=== PATIENT | female | born 1995 | race Caucasian/White ===

== ENCOUNTER 2018-02-28 10:35 | Inpatient (IN) ==
[2018-02-28] MEDS ORDERED: *HR* LORazepam 2 MG/ML VIAL IM PRN (10:44)
[2018-02-28] MEDS ORDERED: MOM Conc 10 ML UD.LIQ PO PRN (10:44)
[2018-02-28] MEDS ORDERED: Acetaminophen 325 MG TABLET PO PRN (10:44)
[2018-02-28] MEDS ORDERED: Haloperidol Lactate 5 MG/ML VIAL IM PRN (10:44)
[2018-02-28] MEDS ORDERED: Mag Hydrox/Al Hydrox/Simeth 30 ML UDC PO PRN (10:44)
[2018-02-28] MEDS ORDERED: traZODone 50 MG TABLET PO PRN (10:44)
[2018-02-28] MEDS ORDERED: *HR* LORazepam 1 MG TABLET PO PRN (10:44)
[2018-02-28] MEDS ORDERED: hydrOXYzine pamoate 25 MG CAPSULE PO PRN (10:44)
--- NOTE | 2018-02-28 16:55 | Psychiatry History & Physical ---
Date of Encounter: 02/28/18 Time of Encounter: 16:30 History of Present Illness Patient Stated Chief Complaint: "I overdosed on my medication." Medicare Admission Attestation: For traditional Medicare patients the provided hospital inpatient services are reasonable and necessary and in the case of services not specified as inpatient-only under 42 CFR 419.22 (n), that they are appropriately provided as inpatient services in accordance 42 CFR 412.3. For Critical Access Hospital the patient may reasonably be expected to be discharged or transferred to a hospital within 96 hours after admission to the Critical Access Hospital. History of Present Illness: Ms. Holliday is a 22 year old female admitted from medicine service. Patient admitted after overdosing on Lexapro 5mg and Effexor 75mg. The patient had BP and pulse elevation for 2 days and once she was medically stable was able to come to [facility]. Patient stated she had an argument with her mother which precipitated the SI. Patient has one other psychiatric hospitalization on [facility] for depression in April of 2017. Patient has been on Effexor 75mg after first hospitalization, but found that it made her tired, but she could not sleep. She was switched to Lexapro 5mg about 2 wks prior to admission and noticed no improvement in her mood. Patient admitted to low energy, dwelling on things, amotivation, change in appetite, isolating and being depressed She rated her depression a 6 and her anxiety a 5 on a scale of 1-10, 10 being worst. Patient continues to have suicidal ideation, Denies homicidal ideation, denies A/V hallucinations. Denies psychotic symptoms. Patient tried to overdose on Tylenol when a teenager. Patient also stated that she had jessica diagnosed with dyslexia and ADD when she was a teenager, but was never treated for the ADD. Past Med Surg Social Fam HX - Past Medical History Medical history: no medical history - Past Psychiatric History Psychiatric history: Reports: anxiety, ADHD, depression, previous psychiatric hospitalization Past psychiatric history details: Patient hospitalized in April 2017 for severe depression with SI Family psychiatric history: Yes Family History of Suicide: Unknown - Past Surgical History Surgical History: no surgical history - Social History Smoking Status: Never smoker Smokeless Tobacco Status: No Alcohol use: occasionally Drug use: none - Family History Sister Hx Family Neurologic Disorders: Yes (CF) Medications & Allergies Escitalopram [Lexapro] 5 mg PO DAILY 02/27/18 [History] Allergy/AdvReac Type Severity Reaction Status Date / Time sulfamethoxazole Allergy Rash Verified 05/12/17 00:01 [From Bactrim] trimethoprim [From Bactrim] Allergy Rash Verified 05/12/17 00:01 Review of Systems Constitutional: Denies: fever, chills, weakness, weight change Eyes: Denies: eye pain, vision change Ears, Nose, Throat: Denies: ear pain, throat pain, dental pain, hearing loss, congestion Cardiovascular: Denies: chest pain, palpitations, dyspnea on exertion Respiratory: Denies: cough, dyspnea, wheezes Gastrointestinal: Denies: abdominal pain, nausea, vomiting, diarrhea, constipation Genitourinary female: Denies: urgency, dysuria, frequency, abnormal menses, dyspareunia Musculoskeletal: Denies: joint swelling, joint pain Integumentary: Denies: rash, lesions, pruritus Neurological: Denies: headache, weakness, numbness, memory loss Psychiatric: Reports: depression, anxiety, suicidal ideation, difficulty concentrating Endocrine: Denies: fatigue, heat or cold intolerance, polydipsia, polyuria Hematologic/Lymphatic: Denies: easy bruising, lymphadenopathy Allergic/Immunologic: Denies: urticaria, itchy eyes Exam - HEENT Head exam IM: Present: atraumatic Eye exam IM: Present: EOMI, normal appearance, PERRL ENT exam IM: Present: normal exam - Neurological Neurological exam: Present: CN II-XII intact - Respiratory Respiratory exam IM: Present: CTAB - GI/Abdominal GI/Abdominal exam IM: Present: normal bowel sounds, soft. Absent: tenderness - Extremities Extremities exam IM: Present: full ROM - Skin Skin exam IM: Present: dry, warm - Constitutional General appearance: age & developmentally appropriate, well-groomed, well- nourished - Musculoskeletal Gait: normal Station: relaxed Strength & Tone: normal for patient - Psychiatric Patient Orientation: Yes Person, Yes Time, Yes Place, Yes Circumstance Level of alertness: Alert Behavior: calm, cooperative Psychomotor activity: Normal Eye Contact: Maintains Eye Contact Mood Description: Depressed, Anxious Patient description of mood: Moderately depressed Affect description: congruent with mood, full range Speech Volume: Normal Speech pattern: normal rate, normal rhythm, normal tone, fluent, spontaneous Language & Vocabulary: consistent with education Thought Process: Linear, Goal Oriented Thought Content: Yes Suicidal ideation, No Homicidal ideation, No Overt delusions Perceptual Disturbances: No Auditory hallucinations, No Visual hallucinations Attention Span Ability: Capable of Focused Attention Memory Description: Grossly Intact Patient Reliability: Reliable Historian Fund of knowledge: Yes abstraction ability, Yes average, Yes aware of current events Intelligence Estimate: Average Judgment: Fair Insight: Partial Results - Impressions Labs on discharge from [facility] WNL. Assessment and Plan (1) Suicidal ideation Current visit: No Status: Acute Plan: Admit inpatient for safety and stabilization, Close observation, Suicide Precautions per unit protocol, Encourage participation in unit milieu, Group Therapy, Monitor sleep, Monitor appetite Additional Plan: Start Cymbalta or derpession Risks, benefits, side effects, alternatives discussed w/pt: Yes Patient agreeable to treatment: Yes Plans for Post Hospital Care: Home Estimated Length of Stay (Days): 6 (2) Major depress dis, severe Current visit: No Status: Acute Plan: Admit inpatient for safety and stabilization, Close observation, Suicide Precautions per unit protocol, Encourage participation in unit milieu, Group Therapy, Monitor sleep, Monitor appetite Additional Plan: Start Cymbalta 30mg for mood with titration to 60mg/d Risks, benefits, side effects, alternatives discussed w/pt: Yes Patient agreeable to treatment: Yes Plans for Post Hospital Care: Home (3) Generalized anxiety disorder Current visit: No Status: Chronic Plan: Admit inpatient for safety and stabilization, Close observation, Suicide Precautions per unit protocol, Encourage participation in unit milieu, Group Therapy, Monitor sleep, Monitor appetite Additional Plan: Start Cymbalta 30mg/d for anxiety Risks, benefits, side effects, alternatives discussed w/pt: Yes Patient agreeable to treatment: Yes Plans for Post Hospital Care: Home
--- NOTE | 2018-03-01 10:21 | Psychiatry Progress Note ---
Date of Encounter: 03/01/18 Time of Encounter: 10:10 Subjective Interval history: Patient presents calmly and rather guarded. She states that she woke up early in the night and stayed awake for about an hour and a half. Patient denies suicidal ideation, but may be trying to minimize this as her depression score is still a 9 on a scale of 1-10, 10 is worst. She has not received her first dose of Cymbalta yet. Patient very quiet and not wanting to explore any of her issues with her mother and the of her 2 sisters (triplets) who had cystic fibrosis. Patient has gone to 2 groups, but apparently not sharing much with her peers. Patient states she has a close relationship with mother, but they don't really know each other that well. Patient has trust issues. Review of Systems Constitutional: Denies: fever, chills, weakness, weight change Eyes: Denies: eye pain, vision change Ears, Nose, Throat: Denies: ear pain, throat pain, dental pain, hearing loss, congestion Cardiovascular: Denies: chest pain, palpitations, dyspnea on exertion Respiratory: Denies: cough, dyspnea, wheezes Gastrointestinal: Denies: abdominal pain, nausea, vomiting, diarrhea, constipation Genitourinary female: Denies: urgency, dysuria, frequency, hematuria Musculoskeletal: Denies: joint swelling, joint pain Integumentary: Denies: rash, lesions, change in hair/nails, pruritus Neurological: Denies: headache, weakness, numbness, memory loss Psychiatric: Reports: depression, anxiety, abnormal sleep pattern (disrupted sleep), suicidal ideation, difficulty concentrating Results - Vital Signs Vital Signs: Temp Pulse Resp BP Pulse Ox 98.8 F 68 16 122/87 96 02/28/18 20:33 02/28/18 20:33 02/28/18 20:33 02/28/18 20:33 02/28/18 20:33 Assessment and Plan (1) Suicidal ideation Current visit: No Status: Acute Additional Plan: continue Cymbalta or derpession Risks, benefits, side effects, alternatives discussed w/pt: Yes Patient agreeable to treatment: Yes (2) Major depress dis, severe Current visit: No Status: Acute Additional Plan: Continue Cymbalta 30mg for mood with titration to 60mg/d Risks, benefits, side effects, alternatives discussed w/pt: Yes Patient agreeable to treatment: Yes (3) Generalized anxiety disorder Current visit: No Status: Chronic Additional Plan: continue Cymbalta 30mg/d for anxiety Risks, benefits, side effects, alternatives discussed w/pt: Yes Patient agreeable to treatment: Yes Consult Discharge Plan - Plan Referrals: NONE,PCP [Primary Care Provider] - Psychiatry Exam - Constitutional Vitals: Temp Pulse Resp BP Pulse Ox 98.8 F 68 16 122/87 96 02/28/18 20:33 02/28/18 20:33 02/28/18 20:33 02/28/18 20:33 02/28/18 20:33 General appearance: age & developmentally appropriate, well-groomed, well- nourished - Musculoskeletal Gait: normal Station: relaxed Strength & Tone: normal for patient - Psychiatric Patient Orientation: Yes Person, Yes Time, Yes Place, Yes Circumstance Level of alertness: Alert Behavior: calm, cooperative, guarded Psychomotor activity: Normal Eye Contact: Maintains Eye Contact Mood Description: Depressed, Anxious Affect description: congruent with mood, constricted Speech Volume: Normal Speech pattern: normal rate, normal rhythm, normal tone, fluent, spontaneous, clear, coherent Language & Vocabulary: consistent with education Thought Process: Logical, Linear, Goal Oriented Thought Content: Yes Suicidal ideation Perceptual Disturbances: No Auditory hallucinations, No Visual hallucinations Attention Span Ability: Capable of Focused Attention Memory Description: Grossly Intact Patient Reliability: Reliable Historian Fund of knowledge: Yes abstraction ability, Yes average, Yes aware of current events Intelligence Estimate: Average Judgment: Fair Insight: Partial
--- NOTE | 2018-03-02 12:50 | Psychiatry Progress Note ---
Date of Encounter: 03/02/18 Time of Encounter: 12:45 Subjective Interval history: ID: the patient is a 22-year-old single white female. CC: I am still suicidal. I have thoughts of killing myself. History of present illness: The patient has continued to have suicidal ideation. She notes that her situation is influx. She made an effort to move to [facility] with a new roommate but took an overdose instead. Her friends of common and supportive but yet chastised her for taking the overdose. The patient has been able to tolerate Cymbalta but ongoing suicidal ideation with a plan to kill herself when she gets out of the hospital has been a concern. It is not clear that that as been caused by the antidepressant. Nonetheless patient is willing to continue on for further observation will on this medicine. Her plan is to follow-up with adequate tightness in [facility]. She plans live in the area near [facility]. Patient notes some anxiety and worry. She strained participate in groups and she has no plans to kill herself on the unit Review of Systems Psychiatric: Reports: depression, anxiety, suicidal ideation, difficulty concentrating Results - Vital Signs Vital Signs: Temp Pulse Resp BP Pulse Ox 99 F 99 16 119/81 100 03/02/18 08:54 03/02/18 08:54 03/02/18 08:54 03/02/18 08:54 03/02/18 08:54 Assessment and Plan (1) Suicidal ideation Current visit: No Status: Acute Plan: Continue hospitalization, Close observation, Suicide Precautions per unit protocol, Secure weapons Risks, benefits, side effects, alternatives discussed w/pt: Yes Patient agreeable to treatment: Yes (2) Major depress dis, severe Current visit: No Status: Acute Plan: Continue hospitalization, Close observation, Encourage participation in unit milieu, Group Therapy, Monitor sleep, Monitor appetite, Family/Supportive other meeting Risks, benefits, side effects, alternatives discussed w/pt: Yes Patient agreeable to treatment: Yes (3) Generalized anxiety disorder Current visit: No Status: Chronic Plan: Continue hospitalization, Close observation, Suicide Precautions per unit protocol, Group Therapy, Monitor sleep, Monitor appetite Risks, benefits, side effects, alternatives discussed w/pt: Yes Patient agreeable to treatment: Yes Consult Discharge Plan - Plan Referrals: NONE,PCP [Primary Care Provider] - Psychiatry Exam - Constitutional Vitals: Temp Pulse Resp BP Pulse Ox 99 F 99 16 119/81 100 03/02/18 08:54 03/02/18 08:54 03/02/18 08:54 03/02/18 08:54 03/02/18 08:54 General appearance: age & developmentally appropriate, well-groomed, well- nourished, bizarre, thin - Musculoskeletal Gait: normal Station: relaxed Strength & Tone: normal for patient - Psychiatric Patient Orientation: Yes Person, Yes Time, Yes Place Level of alertness: Alert Behavior: calm, cooperative Psychomotor activity: Normal Eye Contact: Maintains Eye Contact Mood Description: Depressed Affect description: congruent with mood, constricted, dysphoric Speech Volume: Normal Speech pattern: normal rate, normal rhythm, normal tone, fluent, spontaneous Language & Vocabulary: consistent with education Thought Process: Linear, Goal Oriented Thought Content: Yes Suicidal ideation, No Homicidal ideation, No Overt delusions Perceptual Disturbances: No Auditory hallucinations, No Visual hallucinations Attention Span Ability: Capable of Focused Attention Memory Description: Grossly Intact Patient Reliability: Reliable Historian Fund of knowledge: Yes abstraction ability, Yes aware of current events Intelligence Estimate: Average Judgment: Fair Insight: Partial
--- NOTE | 2018-03-03 18:19 | Psychiatry Progress Note ---
Date of Encounter: 03/03/18 Time of Encounter: 18:15 Subjective Interval history: ID: 22 yo SW female CC: I will probably stay with my mom. HPI: mirian would like a safety plan that incldues staying with mom through the holidays and moving up to [place] with possible follow-up at [facility]. She has friend's who arpartment is safe with no guns or other means. Moms house is safe. She has been seen in [facility], previously, but not now. She is tolerating medication. She is able to contract for safety on the unit. Review of Systems Psychiatric: Reports: depression, anxiety, suicidal ideation, difficulty concentrating Results - Vital Signs Vital Signs: Temp Pulse Resp BP Pulse Ox 98.5 F 100 18 116/83 99 03/03/18 09:00 03/03/18 09:00 03/03/18 09:00 03/03/18 09:00 03/03/18 09:00 Assessment and Plan (1) Suicidal ideation Current visit: No Status: Acute Risks, benefits, side effects, alternatives discussed w/pt: Yes Patient agreeable to treatment: Yes (2) Major depress dis, severe Current visit: No Status: Acute Risks, benefits, side effects, alternatives discussed w/pt: Yes Patient agreeable to treatment: Yes (3) Generalized anxiety disorder Current visit: No Status: Chronic Risks, benefits, side effects, alternatives discussed w/pt: Yes Patient agreeable to treatment: Yes Consult Discharge Plan - Plan Referrals: NONE,PCP [Primary Care Provider] - Psychiatry Exam - Constitutional Vitals: Temp Pulse Resp BP Pulse Ox 98.5 F 100 18 116/83 99 03/03/18 09:00 03/03/18 09:00 03/03/18 09:00 03/03/18 09:00 03/03/18 09:00 General appearance: age & developmentally appropriate, well-groomed, well- nourished - Musculoskeletal Gait: normal Station: relaxed Strength & Tone: normal for patient - Psychiatric Patient Orientation: Yes Person, Yes Time, Yes Place Level of alertness: Alert Behavior: calm, cooperative Psychomotor activity: Normal Eye Contact: Maintains Eye Contact Mood Description: Depressed Affect description: congruent with mood, full range Speech Volume: Normal Speech pattern: normal rate, normal rhythm, normal tone, fluent, spontaneous Language & Vocabulary: consistent with education Thought Process: Linear, Goal Oriented Thought Content: Yes Suicidal ideation, No Homicidal ideation, No Overt delusions Perceptual Disturbances: No Auditory hallucinations, No Visual hallucinations Attention Span Ability: Capable of Focused Attention Memory Description: Grossly Intact Fund of knowledge: Yes abstraction ability, Yes aware of current events Intelligence Estimate: Average Judgment: Limited Insight: Minimal
--- NOTE | 2018-03-04 14:22 | Psychiatry Progress Note ---
Date of Encounter: 03/04/18 Time of Encounter: 14:15 Subjective Interval history: ID the patient is a 22-year-old single white female. Chief complaint I still have a safety plan. I think about suicide. History of present illness the patient is continued to have suicidal thinking. Part of it is related to the discharge plan. She may go home to her mother before moving in with a roommate. She has no guns in her home but the patient has taken overdoses before. She espouses philosophy that a flight does not work out she can and treat this is of concern. The patient is tolerating the Cymbalta but does not wish to increase it. She has no nausea no headache and no stomach upset no dizziness. Patient is able to sleep and is more reactive and is participating in groups. Nonetheless their interpersonal conflicts that may arise. I have recommended suicide hotline local mental health centers both in [place] and in [place]. We talked about the intake process and starting in a new mental Health Center or clinic such at [facility]. Review of Systems Psychiatric: Reports: depression, anxiety, suicidal ideation, difficulty concentrating Results - Vital Signs Vital Signs: Temp Pulse Resp BP Pulse Ox 98.3 F 88 16 108/76 100 03/04/18 09:00 03/04/18 09:00 03/04/18 09:00 03/04/18 09:00 03/04/18 09:00 Assessment and Plan (1) Suicidal ideation Current visit: No Status: Acute Plan: Close observation, Suicide Precautions per unit protocol, Secure weapons, Family/Supportive other meeting, Other Risks, benefits, side effects, alternatives discussed w/pt: Yes Patient agreeable to treatment: Yes (2) Major depress dis, severe Current visit: No Status: Acute Plan: Close observation, Group Therapy, Monitor sleep, Monitor appetite, Secure weapons Risks, benefits, side effects, alternatives discussed w/pt: Yes Patient agreeable to treatment: Yes (3) Generalized anxiety disorder Current visit: No Status: Chronic Plan: Suicide Precautions per unit protocol, Secure weapons Risks, benefits, side effects, alternatives discussed w/pt: Yes Patient agreeable to treatment: Yes Consult Discharge Plan - Plan Referrals: NONE,PCP [Primary Care Provider] - Psychiatry Exam - Constitutional Vitals: Temp Pulse Resp BP Pulse Ox 98.3 F 88 16 108/76 100 03/04/18 09:00 03/04/18 09:00 03/04/18 09:00 03/04/18 09:00 03/04/18 09:00 General appearance: age & developmentally appropriate, well-groomed, well- nourished - Musculoskeletal Gait: normal Station: relaxed Strength & Tone: normal for patient - Psychiatric Patient Orientation: Yes Person, Yes Time, Yes Place Level of alertness: Alert Behavior: calm, cooperative Psychomotor activity: Normal Eye Contact: Maintains Eye Contact Mood Description: Depressed Affect description: congruent with mood, full range Speech Volume: Normal Speech pattern: normal rate, normal rhythm, normal tone, fluent, spontaneous Language & Vocabulary: consistent with education Thought Process: Linear, Goal Oriented Thought Content: Yes Suicidal ideation, No Homicidal ideation, No Overt delusions Perceptual Disturbances: No Auditory hallucinations, No Visual hallucinations Attention Span Ability: Capable of Focused Attention Memory Description: Grossly Intact Patient Reliability: Questionable Historian Fund of knowledge: Yes abstraction ability, Yes aware of current events Intelligence Estimate: Average Judgment: Limited Insight: Minimal
--- NOTE | 2018-03-05 13:32 | Psychiatry Progress Note ---
Date of Encounter: 03/05/18 Time of Encounter: 13:30 Subjective Interval history: DD: The patient is a 18-year-old single white female. Chief complaint: I did not sleep well last night. I do not have a plan to take an overdose in the hospital or immediately thereafter. History of present illness: The patient still has a sense of sadness and hopelessness.. She has suicidal ideation with a plan to kill herself. She found that the overdose was a very unpleasant experience. She cannot say that she will not attempt suicide after discharge. She still espouses a belief that life is too difficult than suicide his a viable option area the patient has discussed some suicide safety plans. She did visit with her mother and her friend last night. She still evidence suicidal ideation to the nursing staff she was reported to be anxious she had difficulty falling asleep she is avoided melatonin and trazodone as a are too sedating or did not work. Nonetheless patient is willing to try another medicine for sleep. Patient did not want to change the antidepressant as her mood is improving. The patient is willing to consider [facility] with eventual follow-up a local mental Health Center in [facility]. Review of Systems Psychiatric: Reports: depression, anxiety, abnormal sleep pattern (disrupted sleep), suicidal ideation, difficulty concentrating, hopelessness Results - Vital Signs Vital Signs: Temp Pulse Resp BP Pulse Ox 98 F 89 16 107/75 98 03/05/18 09:00 03/05/18 09:00 03/05/18 09:00 03/05/18 09:00 03/05/18 09:00 Assessment and Plan (1) Suicidal ideation Current visit: No Status: Acute Plan: Continue hospitalization, Close observation, Suicide Precautions per unit protocol, Encourage participation in unit milieu, Secure weapons Risks, benefits, side effects, alternatives discussed w/pt: Yes Patient agreeable to treatment: Yes (2) Major depress dis, severe Current visit: No Status: Acute Plan: Continue hospitalization, Close observation, Suicide Precautions per unit protocol, Encourage participation in unit milieu, Group Therapy, Monitor sleep, Monitor appetite, Secure weapons, Family/Supportive other meeting Risks, benefits, side effects, alternatives discussed w/pt: Yes Patient agreeable to treatment: Yes (3) Generalized anxiety disorder Current visit: No Status: Chronic Plan: Monitor sleep Risks, benefits, side effects, alternatives discussed w/pt: Yes Patient agreeable to treatment: Yes Consult Discharge Plan - Plan Referrals: NONE,PCP [Primary Care Provider] - Psychiatry Exam - Constitutional Vitals: Temp Pulse Resp BP Pulse Ox 98 F 89 16 107/75 98 03/05/18 09:00 03/05/18 09:00 03/05/18 09:00 03/05/18 09:00 03/05/18 09:00 General appearance: age & developmentally appropriate, well-groomed, well- nourished - Musculoskeletal Gait: normal Station: relaxed Strength & Tone: normal for patient - Psychiatric Patient Orientation: Yes Person, Yes Time, Yes Place Level of alertness: Alert Behavior: calm, cooperative Psychomotor activity: Slowed Eye Contact: Maintains Eye Contact Mood Description: Depressed Affect description: congruent with mood, constricted, dysphoric Speech Volume: Normal Speech pattern: normal rate, normal rhythm, normal tone, fluent, spontaneous Language & Vocabulary: consistent with education Thought Process: Linear, Goal Oriented Thought Content: Yes Suicidal ideation, No Homicidal ideation, No Overt delusions Perceptual Disturbances: No Auditory hallucinations, No Visual hallucinations Attention Span Ability: Capable of Focused Attention Memory Description: Grossly Intact Patient Reliability: Reliable Historian Fund of knowledge: Yes abstraction ability, Yes aware of current events Intelligence Estimate: Average Judgment: Fair Insight: Partial
[2018-03-05] MEDS ORDERED: hydrOXYzine pamoate 25 MG CAPSULE PO ONE (21:00)
[2018-03-06 08:46] VITALS: BP 120/76
--- NOTE | 2018-03-06 12:34 | Discharge Summary ---
Date of Encounter: 03/06/18 Time of Encounter: 12:30 Diagnosis - Discharge Diagnosis (1) Suicidal ideation Priority: Secondary Status: Resolved (2) Major depress dis, severe Priority: Primary Status: Acute (3) Generalized anxiety disorder Status: Chronic Medications - Discharge Medications Prescriptions: DULoxetine [Cymbalta] 30 mg PO DAILY 30 Days #30 capsule. hydrOXYzipeter pamoate [HydrOXYzine Pamoate] 25 mg PO TID PRN 30 Days #30 capsule PRN Reason: Anxiety DULoxetine [Cymbalta] 30 mg PO DAILY 30 Days #30 capsule. 03/06/18 [Rx] hydrOXYzine pamoate [HydrOXYzine Pamoate] 25 mg PO TID PRN 30 Days #30 capsule 03/06/18 [Rx] Allergy/AdvReac Type Severity Reaction Status Date / Time sulfamethoxazole Allergy Rash Verified 05/12/17 00:01 [From Bactrim] trimethoprim [From Bactrim] Allergy Rash Verified 05/12/17 00:01 Provider Date of admission: 02/28/18 10:35 Primary care physician: PCP NONE Discharging clinician: Billy Hines Psychiatry Exam - Constitutional Vitals: Temp Pulse Resp BP Pulse Ox 98.6 F 92 18 120/76 98 03/06/18 08:45 03/06/18 08:45 03/06/18 08:45 03/06/18 08:45 03/06/18 08:45 General appearance: age & developmentally appropriate, well-groomed, well- nourished - Musculoskeletal Gait: normal Station: relaxed Strength & Tone: normal for patient - Psychiatric Patient Orientation: Yes Person, Yes Time, Yes Place Level of alertness: Alert Behavior: calm, cooperative Psychomotor activity: Normal Eye Contact: Maintains Eye Contact Mood Description: Euthymic/stable Affect description: congruent with mood, full range Speech Volume: Normal Speech pattern: normal rate, normal rhythm, normal tone, fluent, spontaneous Language & Vocabulary: consistent with education Thought Process: Linear, Goal Oriented Thought Content: Yes Suicidal ideation, No Homicidal ideation, No Overt delusions Perceptual Disturbances: No Auditory hallucinations, No Visual hallucinations Attention Span Ability: Capable of Focused Attention Memory Description: Grossly Intact Patient Reliability: Reliable Historian Fund of knowledge: Yes abstraction ability, Yes aware of current events Intelligence Estimate: Average Judgment: Good Insight: Full Hospital Course Hospital course: Ms. Holliday is a 22 year old female CC: I am having some thoughts but I am able to deal with them. HPI: The patient was admitted to the 1A unit. The patient was placed on the medicine Cymbalta. But she continued to have suicidal thinking. The patient had an adverse reaction to Lexapro causing suicidal ideation. But Cymbalta did not appear to be associated with. A variety of conflicts in the patient's a social emotional life were considered. The patient did not participate in groups and milieu therapy. She did tolerate the medicine without significant side effects. The patient tried hydroxyzine for sleep and night on the day prior to discharge and was able to tolerate at least to 25 mg daily at bedtime dose. The patient has been told to come up with a safety plan that includes talking to family members discussing her concerns. Reaching out to friends calling the suicide hotline number and using hydroxyzine on an as-needed basis. The patient still has some thoughts of suicide and a philosophy of ending her life if there is great adversity. She recognizes suicide thoughts including hanging but reports that her strategy will be to stay away from ropes. Her overdose that caused her hospitalization was perceived as aversive. And the patient reported not having thoughts of overdose. She met with family and friends on the unit including visiting hours and these visits were reported gone well. The patient may move to [facility]. Thus arrangements were made for her locally and in the neighborhood that she plans to move to. The patient verbalized understanding of the treatment plan the day of discharge. - Time Spent with Patient Total time spent providing and/or coordinating discharge services: Less than 30 minutes Assessment and Plan - Patient/Caregiver Discharge Instructions Activity: resume usual activities as tolerated, return to work Diet: regular diet - Follow up Plan Follow up with: [facility] [Outside] - 03/31/18 8:40 am (Scheduled with Dr. Estevez) Functional capacity at discharge: independent ambulation Overall status at discharge: Stable Disposition: Home, Self-Care Quality - Multiple Antipsychotics Patient discharged on 2 or more antipsychotic medications: No Procedures - Procedures Procedures: Medication Management, Crisis Stabilization, Supportive Therapy, Group Therapy, Psychoeducational Therapy
== END 2018-03-06 13:25 | disposition home or self-care (01) | DRG 885 ==
LOC: SUATTDRO 10:35 → 1ANU 10:35
PROVIDERS: ADMIT Psychiatry & Neurology Psychiatry; ATTEND Psychiatry & Neurology Forensic Psychiatry

== ENCOUNTER 2020-01-24 18:54 | Inpatient (IN) ==
[2020-01-24 19:43] LABS: Bilirubin,Urine Negative (Negative); Blood,Urine Negative (Negative); Clarity,Urine Clear (Clear); Color,Urine Yellow (Yellow); Glucose,Urine (UA) Normal (Normal); Ketones,Urine Negative (Negative); Leukocyte Esterase,Urine Trace (Negative); Nitrite,Urine Negative (Negative); Protein,Urine 30 mg/dL (Neg-Trace); Urobilinogen,Urine Normal (Normal)
[2020-01-24 19:54] LABS: Basophils # 0.1 K/mcL (0.0-0.2); Basophils % 0.6 %; Eosinophils % 0.5 %; Hematocrit 45.2 % (35.3-44.9); Hemoglobin 14.5 g/dL (11.5-15.4); Immature Granulocytes % 0.1 % (0-4); Lymphocytes # 2.2 K/mcL (0.6-4.6); Lymphocytes % 25.8 %; Mean Corpuscular HGB Conc 32.1 g/dL (31.6-35.5); Mean Corpuscular Hemoglobin 27.7 pg (28.0-33.3); Mean Corpuscular Volume 86.4 fL (83.0-100.0); Monocytes # 0.6 K/mcL (0.0-1.3); Monocytes % 6.7 %; Neutrophils # 5.7 K/mcL (1.6-8.9); Platelet Count 343 K/mcL (140-400); Red Blood Count 5.23 M/mcL (3.82-4.97); Red Cell Distribution Width 12.5 % (11.5-14.5); Segmented Neutrophils % 66.3 %; White Blood Count 8.6 K/mcL (4.3-11.1)
[2020-01-24 20:04] LABS: Amphetamine Screen,Urine Negative ng/mL (Cutoff=1000); Barbiturate Screen,Urine Negative ng/mL (Cutoff=200); Benzodiazepines Screen,Urine Negative ng/mL (Cutoff=200); Cannabinoid Screen,Urine Negative ng/mL (Cutoff = 50); Cocaine Screen,Urine Negative ng/mL (Cutoff= 300); Opiate Screen,Urine Negative ng/mL (Cutoff=300); Phencyclidine Screen,Urine Negative ng/mL (Cutoff=25)
[2020-01-24 20:14] LABS: Acetaminophen < 10 mcg/mL (10-20); BUN/Creatinine Ratio 10 (6-26); Blood Urea Nitrogen 8 mg/dL (6-20); Calcium 9.6 mg/dL (8.6-10.3); Carbon Dioxide 22 mEq/L (23-29); Chloride 107 mEq/L (98-107); Ethanol < 10 mg/dL (Less than 10); Glucose 113 mg/dL (70-105); Osmolality,Calculated 285 (280-300); Potassium 3.8 mEq/L (3.5-5.1); Salicylate < 2.5 mg/dL (15.0-30.0); Sodium 138 mEq/L (136-145); eGFR For African Americans > 60 (> 60); eGFR For Non-African Americans > 60 (> 60)
[2020-01-24 20:16] LABS: Bacteria,Urine Few per hpf (None-Few); Mucus,Urine Few per lpf (None-Few); RBC,Urine 0-3 per hpf (0-3); Squamous Epithelial Cell,Urine Few per hpf (None-Few); WBC,Urine 0-3 per hpf (0-3)
[2020-01-24] MEDS ORDERED: haloperidoL 5 MG TABLET PO PRN (21:45)
[2020-01-24] MEDS ORDERED: MOM Conc 10 ML UD.LIQ PO PRN (21:45)
[2020-01-24] MEDS ORDERED: *HR* LORazepam 2 MG/ML VIAL IM PRN (21:45)
[2020-01-24] MEDS ORDERED: Haloperidol Lactate 5 MG/ML VIAL IM PRN (21:45)
[2020-01-24] MEDS ORDERED: Mag Hydrox/Al Hydrox/Simeth 30 ML UDC PO PRN (21:45)
[2020-01-24] MEDS ORDERED: *HR* LORazepam 1 MG TABLET PO PRN (21:45)
[2020-01-24] MEDS: traZODone 50 MG TABLET PO PRN (23:14)
[2020-01-25] MEDS: Acetaminophen 325 MG TABLET PO PRN ×2 (14:09→20:37)
[2020-01-25] MEDS: NORETHINDRONE E ESTRADIOL IRON PO SCH (18:35)
[2020-01-26] MEDS: NORETHINDRONE E ESTRADIOL IRON PO SCH (08:36)
[2020-01-26] MEDS: ARIPiprazole 5 MG TABLET PO SCH ×2 (09:50→22:13)
[2020-01-26] MEDS ORDERED: Ondansetron ODT 4 MG TAB.RAPDIS SL ONE (13:49)
[2020-01-26] MEDS ORDERED: Ondansetron ODT 4 MG TAB.RAPDIS SL PRN (13:50)
[2020-01-26] MEDS: Acetaminophen 325 MG TABLET PO PRN (21:58)
[2020-01-26] MEDS: hydrOXYzine pamoate 25 MG CAPSULE PO PRN (21:58)
[2020-01-27] MEDS: NORETHINDRONE E ESTRADIOL IRON PO SCH (08:41)
[2020-01-27] MEDS: hydrOXYzine pamoate 25 MG CAPSULE PO PRN (21:06)
[2020-01-27] MEDS: ARIPiprazole 5 MG TABLET PO SCH (21:06)
[2020-01-28] MEDS: NORETHINDRONE E ESTRADIOL IRON PO SCH (08:12)
[2020-01-28] MEDS: ASENAPINE MALEATE 5 MG SL SCH (09:00)
[2020-01-28] MEDS ORDERED: ASENAPINE MALEATE 5 MG SL SCH (09:00)
[2020-01-29] MEDS: ASENAPINE MALEATE 5 MG SL SCH (09:09)
[2020-01-29] MEDS: NORETHINDRONE E ESTRADIOL IRON PO SCH (09:11)
[2020-01-29] MEDS: traZODone 50 MG TABLET PO PRN (23:18)
[2020-01-30] MEDS: NORETHINDRONE E ESTRADIOL IRON PO SCH (08:51)
[2020-01-30] MEDS ORDERED: SAPHRIS SL SCH (21:00)
[2020-01-30] MEDS: traZODone 50 MG TABLET PO PRN (21:54)
[2020-01-31 08:26] VITALS: BP 113/79
[2020-01-31] MEDS: NORETHINDRONE E ESTRADIOL IRON PO SCH (08:30)
== END 2020-01-31 10:10 | disposition home or self-care (01) | DRG 753 ==
LOC: EMEROOARM 18:54 → 1ANU 21:36
PROVIDERS: ADMIT Psychiatry & Neurology Psychiatry; ATTEND Psychiatry & Neurology Psychiatry